=== PATIENT | female | born 1980 | race Caucasian/White ===

== ENCOUNTER 2020-03-28 11:14 | Emergency (ER) | payer MEDICAID ==
[~2020-03-28] VITALS: Ht 175.3 cm; Wt 113.6 kg
[2020-03-28 11:20] VITALS: BP 125/70; PULSE 111; TEMP 98.3
[2020-03-28 11:59] LABS: STREP SCREEN NEGATIVE
== END 2020-03-28 12:06 | disposition home or self-care (01) ==
LOC: COL.ER 11:14
PROVIDERS: Physician Assistant
DX: J35.8 Other chronic diseases of tonsils and adenoids (principal); F17.200 Nicotine dependence, unspecified, uncomplicated